=== PATIENT | female | born 1960 | race African-American/Black ===

== ENCOUNTER → 2017-02-19 | Day surgery (SDC) | payer OTHER ==
[~2017-02-19] MED LIST: ALBUTEROL17 GM INH; ATORVASTATIN CA10 MG PO; BENTYL20 MG PO; CENTRUM SILVER PO; CIPRO PO; DICLOFENAC PO; FERROUS SU324 ( 65 ) PO; FLEXERIL PO; FLEXERIL10 M1 PO; FLEXERIL10 MG PO; HYDROCHLOROTH12.5 MG PO; NORVASC PO; PRILOSEC PO; PROTONIX PO; TYLENOL #3 PO; TYLENOL PM EX-S1 TA4 PO; TYLENOL325 M1 PO; ULTRAM PO; VICODIN 5/1 TAB 5/50 PO; VOLTAREN75 MG PO; ZOFRAN ODT4 MG/UDTAB PO
--- NOTE | ~2017-02-19 | OR ---
Unit #: [id number] #: [id number] Patient: LUZ MARIA WHATLEY [id number] [address] [place], [place] [address] [id number] MR#: [id number] NAME: LUZ MARIA WHATLEY ROOM: Date of Procedure: 02/19/2017 Admission Date: 02/19/2017 Surgeon: Vicente Guillaume Jr., M.D. : 1960 Attending Physician: Vicente Guillaume Jr., M.D. Referring Physician: Vicente Guillaume Jr., M.D. Primary Care Physician: Sabi Meneses M.D. OPERATIVE REPORT INDICATIONS FOR PROCEDURE The patient is a 57-year-old black female, recently presented to the office complaining of a nodular mass of the left lateral neck near the occipital area that has had some intermittent pain as well as increasing in size. She is brought in this time for excision of this. 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 PREOPERATIVE DIAGNOSIS Mass in the left posterior neck compatible with a chronic inflamed cyst. POSTOPERATIVE DIAGNOSIS Mass in the left posterior neck compatible with a chronic inflamed cyst, noting approximately 2 cm cyst. ANESTHESIA 1% Xylocaine with epinephrine locally. PROCEDURE PERFORMED Excision of chronic inflamed cyst of the left posterior neck. DESCRIPTION OF PROCEDURE The patient was positioned in right lateral decubitus position. After being prepped and draped in routine fashion, she was anesthetized locally in the area of the cystic mass with 1% Xylocaine with epinephrine. An elliptical incision was made around the cyst with a #10 blade scalpel and carried down through the subcutaneous tissue down to the muscle fascia. After the lesion was completely excised with a #10 blade scalpel, it was sent to pathology. Hemostasis was achieved with Bovie cautery. The deeper tissue approximated with interrupted 3-0 Vicryl sutures. Skin edges approximated with continuous 5-0 nylon suture. Ointment and sterile dressing were applied externally. Estimated blood loss minimal. No drains used. No IV fluids, and no complications. The patient was discharged in satisfactory condition. Dictated by... Vicente Guillaume Jr., M.D. JMB/laine TD: 02/19/2017 20:18 Unit #: [id number] #: [id number] Patient: CHACORTALUZ MARIA MAURICIOY JOB #: [id number] OPERATIVE REPORT Page 1 of 1 X Vicente Guillaume MD PROCEDURE OPERATIVE NOTE
== END | disposition home or self-care (01) ==
LOC: CSUR 09:32
DX: L72.0 Epidermal cyst (principal); I10 Essential (primary) hypertension; E78.5 Hyperlipidemia, unspecified; L08.9 Local infection of the skin and subcutaneous tissue, unspecified
CPT/HCPCS: 88304